=== PATIENT | male | born 2000 | race Hispanic/Latino ===

== ENCOUNTER 2023-03-09 02:29 | Emergency (ER) | payer OTHER, SELFPAY ==
[2023-03-09] VITALS (8 sets, daily range): BP systolic 139–172; BP diastolic 70–98; PULSE 88–111; RESP 18–26; TEMP 37.1–38.4; O2SAT 98–99
--- NOTE | ~2023-03-09 | XR_ITS ---
EXAMINATION: XR chest 1V portable 03/09/2023 03:51 INDICATION: Left chest discomfort PROCEDURE: AP portable chest COMPARISON: No prior studies for comparison. FINDINGS: The lungs are clear. The cardiomediastinal silhouette is within normal limits. There are no pleural effusions. There is no pneumothorax suspected. IMPRESSION: 1: NO ACUTE CARDIOPULMONARY DISEASE. Reviewed, dictated and finalized at location A.
--- NOTE | 2023-03-09 03:16 | ECG_ITS ---
Measurements Intervals [place] Rate: 94 P: 28 MA: 156 QRS: 6 QRSD: 98 T: -5 QT: 328 QTc: 412 Interpretive Statements SINUS RHYTHM BORDERLINE ST-T WAVE ABNORMALITY- INFERIOR LEADS BASELINE WANDER- I, AVR, AVL, AVF, V1, V3 BORDERLINE ECG NO PREVIOUS ECG AVAILABLE FOR COMPARISON Electronically Signed On 03-09-2023 8:04:29 CDT by Hermilo Whelan D.O.
[2023-03-09] MEDS: IBUPROFEN 400 MG TABLET 800 MG PO (03:30)
[2023-03-09] MEDS: SODIUM CHLORIDE 0.9% IV 2,000 ML 999 ML IV CONT (03:41)
[2023-03-09 03:44] LABS: Basophils Percent Auto 0.1 % (0.2-1.2); Hematocrit 46.1 % (42.0-52.0); Hemoglobin 16.1 g/dL (14.0-18.0); Immature Granulocyte Absolute 0.07 K/mm3 (0.00-0.031); Immature Granulocyte Percent A 0.5 % (0-0.5); Lymphocytes Absolute Auto 0.97 K/mm3 (0.9-3.2); Lymphocytes Percent Auto 7.2 % (18.3-44.2); Mean Corpuscular HGB Conc 34.9 g/dl (32-36); Mean Corpuscular Hemoglobin 30.6 pg (26-34); Mean Corpuscular Volume 87.5 fl (80-100); Mean Platelet Volume 10.7 fl (7.4-10.4); Monocytes Absolute Auto 1.1 K/mm3 (0.1-0.6); Monocytes Percent Auto 8.4 % (2.6-8.5); Neutrophils Absolute Auto 11.3 K/mm3 (1.3-6.7); Neutrophils Percent Auto 83.8 % (45.5-73.1); Platelet Count Result 214 k/mm3 (150-375); Red Blood Count 5.27 M/mm3 (4.6-6.20); Red Cell Distribution Width 12.2 % (11.5-14.5); White Blood Count 13.5 K/mm3 (4.5-10.0)
[2023-03-09 03:54] LABS: Alanine Aminotransferase 108 U/L (6-50); Albumin Level 4.8 g/dL (3.5-5.1); Alkaline Phosphatase 73 U/L (38-126); Anion Gap 9 mmol/L (8-16); Aspartate Amino Transferase 45 U/L (17-59); Blood Urea Nitrogen 11 mg/dL (9-20); Calcium 8.1 mg/dL (8.4-10.2); Carbon Dioxide 28 mmol/L (22-30); Chloride 98 mmol/L (98-107); Estimated CRCL calculation 157 ml/min; Estimated Glomerular Filt Rate > 60; Glucose 139 mg/dL (65-110); Lipase 37 U/L (23-300); Magnesium 1.6 mg/dL (1.6-2.3); Potassium 3.2 mmol/L (3.4-5.0); Sodium 135 mmol/L (137-145)
[2023-03-09 04:20] LABS: Influenza A QL RT-PCR Negative (Negative); Influenza B QL RT-PCR Negative (Negative); RSV RNA, RT-PCR Negative (Negative); SARS-CoV-2 RNA PCR Negative (Negative)
[2023-03-09] MEDS: POTASSIUM CHLORIDE 20 MEQ TABLET 40 MEQ PO (05:07)
--- NOTE | 2023-03-09 05:12 | ED.GENADULT ---
HPI - General Adult General Chief complaint: Nausea/Vomiting/Diarrhea Stated complaint: N/V/D, L sided numbness Time Seen by Provider: 03/09/23 02:59 History of Present Illness HPI narrative: This is a 22-year-old male presenting ED with chief complaint of nausea vomiting diarrhea. Patient symptoms started 2 days ago. Has multiple episodes of nausea vomiting diarrhea. He has had fevers. He denies cough congestion or difficulty breathing. Patient came in today because he started to have some numbness and tingling in his chest left arm. It has since resolved. No other complaints. Related Data Allergies Allergy/AdvReac Type Severity Reaction Status Date / Time No Known Allergies Allergy Verified 03/09/23 03:30 Exam Narrative: APPEARANCE: No apparent distress. Patient is well-appearing. Head: atraumatic. EYES: EOMI, NOSE: Atraumatic NECK: Trachea midline RESPIRATORY: No increased rate of breathing, clear to auscultation, speaking in full sentences CARDIOVASCULAR: RRR, no peripheral edema ABDOMINAL: soft nontender , soft nontender no guarding rebound MUSCULOSKELETAl: No obvious deformities NEURO: Alert. Moving 4/4 extremities SKIN:: Warm, dry. Normal color PSYCHIATRIC: Normal affect Course Vital Signs Vital signs: Vital Signs Temperature 101.1 F H 03/09/23 02:34 Pulse Rate 111 H 03/09/23 02:34 Respiratory Rate 18 03/09/23 02:34 Blood Pressure 172/98 H 03/09/23 02:34 Pulse Oximetry 98 03/09/23 02:34 Oxygen Delivery Room Air 03/09/23 02:34 Temperature 101.1 F H 03/09/23 02:34 Pulse Rate 101 H 03/09/23 05:08 Respiratory Rate 22 H 03/09/23 05:08 Blood Pressure 150/76 H 03/09/23 05:08 Pulse Oximetry 99 03/09/23 05:08 Oxygen Delivery Room Air 03/09/23 02:34 Medical Decision Making [facility] Narrative Medical decision making narrative: -Presentation: 22-year-old male presenting with viral syndrome. Patient also had some chest/arm numbness and tingling that has since resolved. basic lab work, chest x-ray EKG vitals swabs were reobtained. Patient will be fluid resuscitated and given Motrin for fever. 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 -External Chart Review: None -Hx from independent Sources: none -Discussion of Management/Consultants: none -Independent interpretation of studies: white blood cell count is elevated 13.5. Potassium was low at 3.2. This was repleted. Rest of metabolic panel was within acceptable limits. Viral swabs were negative. Chest x-ray showed no acute cardiopulmonary process. Independent EKG interpretation: Rhythm [sinus], Rate [94], Vandiver -[normal], GA -[normal], QRS [narrow], QTC [normal], T waves -[negative for concerning inversions], ST Segments - [Negative for concerning elevations] Final interpretations: [Normal Sinus Rhythm] Dx tests considered but not ordered: none -Procedures: none -Interventions: 2 L normal saline, 40 mEq potassium, 800 mg Motrin -Shared decision making / Disposition: On re-evaluation the patient's vital signs have normalized. He is no longer tachycardic or febrile. The patient has not had recurrence of the chest and arm tingling or numbness since his arrival. patient is comfortable going home. He will be given return precautions. -RX Motrin, Tylenol, loperamide Vital Signs Vital Signs: Vital Signs Temperature 101.1 F H 03/09/23 02:34 Pulse Rate 111 H 03/09/23 02:34 Respiratory Rate 18 03/09/23 02:34 Blood Pressure 172/98 H 03/09/23 02:34 Pulse Oximetry 98 03/09/23 02:34 Oxygen Delivery Room Air 03/09/23 02:34 Temperature 101.1 F H 03/09/23 02:34 Pulse Rate 101 H 03/09/23 05:08 Respiratory Rate 22 H 03/09/23 05:08 Blood Pressure 150/76 H 03/09/23 05:08 Pul
== END 2023-03-09 05:53 | disposition home or self-care (01) ==
PROVIDERS: Emergency Provider Emergency Medicine
DX: K52.9 Noninfective gastroenteritis and colitis, unspecified (principal); Z20.822 Contact with and (suspected) exposure to COVID-19; R94.31 Abnormal electrocardiogram [ECG] [EKG]
CPT/HCPCS: 36415; 71045; 80053; 83690; 83735; 85025; 87637; 93005; 96360; 99283; A9270; J7030

== ENCOUNTER 2023-12-04 21:07 | Emergency (ER) | payer OTHER, SELFPAY ==
[2023-12-04 21:10] VITALS: BP 196/119; PULSE 111; RESP 18; TEMP 37.2; O2SAT 99
[2023-12-04] MEDS: SODIUM CHLORIDE 0.9% IV 1,000 ML 999 ML IV CONT (21:31)
[2023-12-04 21:32] VITALS: BP 198/105; PULSE 101; RESP 26; O2SAT 98
[2023-12-04] MEDS: diphenhydrAMINE HCl INJ 50 MG/ML VIAL IV PUSH (21:32)
[2023-12-04] MEDS: FAMOTIDINE 20 MG/2 ML VIAL IV PUSH (21:32)
[2023-12-04] MEDS: methylPREDNISolone SOD SUCC 125 MG VIAL IV PUSH (21:33)
[2023-12-04 22:55] VITALS: BP 177/99; PULSE 99; RESP 17; O2SAT 94
--- NOTE | 2023-12-04 23:11 | PC.NURSE ---
Assumed care of pt from RYAN Phan. Pt resting comfortably in bed and verbalizes feeling relief.
[2023-12-04 23:15] VITALS: O2SAT 96
--- NOTE | 2023-12-04 23:43 | ED.GENADULT ---
HPI - General Adult General Chief complaint: Allergic Reaction Stated complaint: allergic reaction Time Seen by Provider: 12/04/23 21:26 History of Present Illness HPI narrative: Patient 23-year-old gentleman who presents emergency department with chief complaint of allergic reaction. The patient reports he ate some shrimp this evening and reports that he started itching all over his body and felt a fullness in his mouth. The patient denies stridor denies difficulty swallowing denies shortness of breath. Related Data Allergies Allergy/AdvReac Type Severity Reaction Status Date / Time No Known Allergies Allergy Verified 03/09/23 03:30 Review of Systems Review of Systems: A 10 system review of systems was completed on the patient and is negative except for what is stated in the HPI. Nursing and ancillary documentation was reviewed. Course Course Emergency Course: GENERAL: Well-appearing, well-nourished, and in no acute distress. HEAD: Normocephalic, atraumatic. EYES: PERRLA and EOMI. ENT: Nares clear, no rhinorrhea or epistaxis. Mucous membranes moist. NECK: Supple. CHEST: Clear to auscultation. No respiratory distress. HEART: Regular rate and rhythm. No murmur heard. Normal peripheral pulses. ABDOMEN: Soft, nontender, nondistended, normal active bowel sounds. EXTREMITIES: Normal range of motion. No edema. SKIN: Warm, dry, urticarial rash present. NEURO: No focal deficits. Alert and oriented x3. PSYCH: Normal mood and affect. Vital Signs Vital signs: Vital Signs Temperature 37.2 C 12/04/23 21:10 Pulse Rate 111 H 12/04/23 21:10 Respiratory Rate 18 12/04/23 21:10 Blood Pressure 196/119 H 12/04/23 21:10 Pulse Oximetry 99 12/04/23 21:10 Oxygen Delivery Room Air 12/04/23 21:10 Temperature 37.2 C 12/04/23 21:10 Pulse Rate 99 12/04/23 22:55 Respiratory Rate 17 12/04/23 22:55 Blood Pressure 177/99 H 12/04/23 22:55 Pulse Oximetry 94 12/04/23 22:55 Oxygen Delivery Room Air 12/04/23 21:10 Medical Decision Making [facility] Narrative Medical decision making narrative: Differential diagnosis includes generalized allergic reaction, urticaria, Patient received IV steroids IV Benadryl and IV Pepcid the patient will be observed in the emergency department for 2 hours is feeling much better at this time and patient will be discharged home on a course of steroids Vital Signs Vital Signs: Vital Signs Temperature 37.2 C 12/04/23 21:10 Pulse Rate 111 H 12/04/23 21:10 Respiratory Rate 18 12/04/23 21:10 Blood Pressure 196/119 H 12/04/23 21:10 Pulse Oximetry 99 12/04/23 21:10 Oxygen Delivery Room Air 12/04/23 21:10 Temperature 37.2 C 12/04/23 21:10 Pulse Rate 99 12/04/23 22:55 Respiratory Rate 17 12/04/23 22:55 Blood Pressure 177/99 H 12/04/23 22:55 Pulse Oximetry 94 12/04/23 22:55 Oxygen Delivery Room Air 12/04/23 21:10 Critical Care Time Critical Care Time Critical Care Time: Yes Total Critical Care Time: 30 Discharge Plan Discharge Clinical Impression: Allergic reaction Patient Disposition: Home, Self-Care Condition: Stable Instructions: Antibiotic Form, General Allergic Reaction (ED) Prescriptions: New prednisone 20 mg tablet 40 mg PO DAILY 5 Days Qty: 10 0RF No Action acetaminophen 500 mg tablet 1,000 mg PO TID PRN (Reason: petrona) 7 Days Qty: 42 0RF ibuprofen 800 mg tablet 800 mg PO TID PRN (Reason: pain) 7 Days Qty: 21 0RF loperamide [Anti-Diarrheal (loperamide)] 2 mg tablet 2 mg PO QID PRN (Reason: loose stool) Qty: 30 0RF Follow-up/Referrals: Kerline Barnett DO [Physician] - UNKNOWN,DOCTOR [Primary Care Provider] - Time of Disposition: 23:46
[2023-12-05 00:02] VITALS: BP 166/84; PULSE 98; RESP 20; O2SAT 99
== END 2023-12-05 00:04 | disposition home or self-care (01) ==
PROVIDERS: Emergency Provider Emergency Medicine
DX: T78.40XA Allergy, unspecified, initial encounter (principal); X58.XXXA Exposure to other specified factors, initial encounter
CPT/HCPCS: 96361; 96374; 96375; 99284; J1200; J2930; J7030

== ENCOUNTER 2024-05-06 16:25 | Emergency (ER) | payer OTHER, SELFPAY ==
[2024-05-06 16:50] VITALS: BP 180/109; PULSE 106; RESP 20; TEMP 36.8; O2SAT 97
--- NOTE | 2024-05-06 17:08 | ED.GENADULT ---
HPI - General Adult General Chief complaint: Eye Problems Stated complaint: Eyes Irritation/Ear Irritation Time Seen by Provider: 05/06/24 17:08 History of Present Illness HPI narrative: Patient presents today with complaints of bilateral eye irritation, 1st began in right eye then moved to left eye. Does complain of some ocular discharge. States this has been present for 2-3 days. He is also complaining of throat and bilateral ear irritation, denies any outright pain. His blood pressure is noted to be very elevated, he reports this happens every time he seeks medical care. He denies any fever, chills, sweats. He reports his worst symptom today is the eye irritation. He denies any injury or trauma. Denies any vision disturbances. Related Data Allergies Allergy/AdvReac Type Severity Reaction Status Date / Time No Known Allergies Allergy Verified 05/06/24 16:56 Review of Systems Constitutional: Constitutional: Reports as per HPI Eyes: Eyes: Reports eye discharge, Reports irritation, Denies loss of vision, Denies other visual disturbances and Denies eye pain ENT: Reports nasal discharge Cardiovascular: Cardiovascular: Reports as per HPI, Reports no additional cardiovascular complaints, Denies chest pain and Denies dyspnea Respiratory: Respiratory: Reports as per HPI and Denies dyspnea Allergic/Immunologic: Allergic/Immunologic: Reports as per HPI, Reports itchy eyes and Denies wheezing Exam Const: General: cooperative and obese HENMT: Head: normal to inspection Ears: TM's normal bilaterally Face/Nose/Sinus: No sinus tenderness Mouth: No drooling Eyes: Sclera: scleral abnormality bilateral scleral exudate purulent and scleral injection diffuse Resp: Effort & Inspection: normal respiratory effort and able to speak in complete sentences Cardio: Palpation: normal PMI Rate: regular rate Rhythm: regular rhythm Course Course Level of Care: Express Care Visit Vital Signs Vital signs: Vital Signs Temperature 98.3 F 05/06/24 16:50 Pulse Rate 106 H 05/06/24 16:50 Respiratory Rate 05/06/24 16:50 Blood Pressure 180/109 H 05/06/24 16:50 Pulse Oximetry 97 05/06/24 16:50 Oxygen Delivery Room Air 05/06/24 16:50 Temperature 98.3 F 05/06/24 16:50 Pulse Rate 106 H 05/06/24 16:50 Respiratory Rate 05/06/24 16:50 Blood Pressure 160/100 H 05/06/24 17:09 Pulse Oximetry 97 05/06/24 16:50 Oxygen Delivery Room Air 05/06/24 16:50 Medical Decision Making MDM Narrative Medical decision making narrative: negative COVID and strep, culture sent. Eye exam consistent with conjunctivitis. Other symptoms more consistent with URI or allergic rhinitis. Advised patient of same. Treat with Tylenol, Claritin, ibuprofen per package instructions as needed. Advised patient that blood pressure is quite high, strongly urged him to follow with primary care provider. He agrees to do so. Emergency department for new or worsening symptoms Discharge instructions reviewed with patient, as well as provided in writing per nursing staff. The instructions also include specific and strict return/GO TO THE ER as well as f/u information. All questions have been answered, and the patient deny any further questions with discharge and discharge plan. Some parts of this dictation were generated by voice recognition software and may contain typographical and/or grammatical inaccuracies. Differential Diagnosis Differential Diagnosis: Differential diagnoses include URI, COVID, strep throat, hypertension, elevated blood pressure without diagnosis of hypertension allergic rhinitis Medical Records Medical records reviewed: Yes I reviewed the external patient's medical records. Vital Signs Vital Signs: Vital Signs Temperature 98.3 F 05/06/24 16:50 Pulse Rate 106 H 05/06/24 16:50 Respiratory Rate 20 05/06/24 16:50 Blood Pressure 180/109 H 05/06/24 16:50 Pulse Oximetry 97 05/06/24 16:50 Oxyge
[2024-05-06 17:09] VITALS: BP 160/100
[2024-05-06 17:47] LABS: EDSTREPNEGPOS1 Presumptive Negative
== END 2024-05-06 17:44 | disposition home or self-care (01) ==
PROVIDERS: Emergency Provider Nurse Practitioner Family
DX: H10.9 Unspecified conjunctivitis (principal); R03.0 Elevated blood-pressure reading, without diagnosis of hypertension; Z20.822 Contact with and (suspected) exposure to COVID-19
CPT/HCPCS: 87081; 87426; 87880; 99213; G0463

== ENCOUNTER 2024-08-16 08:47 | Outpatient (CLI) | payer OTHER, SELFPAY ==
[2024-08-16 09:12] LABS: Hematocrit 46.3 % (42.0-52.0); Hemoglobin 17.3 g/dL (14.0-18.0); Mean Corpuscular HGB Conc 37.4 g/dl (32-36); Mean Corpuscular Hemoglobin 33.3 pg (26-34); Mean Corpuscular Volume 89.2 fl (80-100); Mean Platelet Volume 12.2 fl (7.4-10.4); Platelet Count Result 224 k/mm3 (150-375); Red Blood Count 5.19 M/mm3 (4.6-6.20); Red Cell Distribution Width 11.9 % (11.5-14.5); White Blood Count 9.8 K/mm3 (4.5-10.0)
[2024-08-16 09:56] LABS: Hemoglobin A1C 10.6 % (<5.7)
[2024-08-16 11:28] LABS: Alanine Aminotransferase 221 U/L (6-50); Albumin Level 4.8 g/dL (3.5-5.1); Alkaline Phosphatase 150 U/L (38-126); Anion Gap 12 mmol/L (4-12); Aspartate Amino Transferase 94 U/L (17-59); Bilirubin,Total 0.6 mg/dL (0.2-1.3); Blood Urea Nitrogen 19 mg/dL (9-20); Calcium 9.6 mg/dL (8.4-10.2); Carbon Dioxide 25 mmol/L (22-30); Chloride 99 mmol/L (98-107); Cholesterol 201 mg/dL (0-200); Estimated Glomerular Filt Rate > 60; Glucose 283 mg/dL (65-110); Potassium 4.3 mmol/L (3.4-5.0); Sodium 136 mmol/L (137-145)
[2024-08-16 11:47] LABS: LDL Cholesterol Direct < 60 mg/dL
[2024-08-16 12:33] LABS: Triglycerides 1943 mg/dL (<150)
== END 2024-08-16 08:48 | disposition home or self-care (01) ==
LOC: ANHLAB 08:49
PROVIDERS: PCP Family Medicine; Visit Provider Family Medicine
DX: Z00.00 Encounter for general adult medical examination without abnormal findings (principal); E66.9 Obesity, unspecified; E78.5 Hyperlipidemia, unspecified; F41.9 Anxiety disorder, unspecified
CPT/HCPCS: 36415; 80053; 80061; 83036; 84443; 85027

== ENCOUNTER 2025-05-27 13:05 | Emergency (ER) | payer OTHER, SELFPAY ==
[2025-05-27 13:11] VITALS: BP 183/93; PULSE 102; RESP 18; TEMP 36.6; O2SAT 100
--- NOTE | 2025-05-27 14:03 | ED_ITS ---
HPI - Ear Problem General Chief complaint: Ear Stated complaint: LT Ear Pain Time Seen by Provider: 05/27/25 13:25 Source: patient and RN notes reviewed Mode of arrival: ambulatory Limitations: no limitations History of Present Illness HPI Narrative: 24-year-old male presents Express Care complaining of left ear pain for approximately 1 day now. Patient said he was swimming approximately 1 week ago however develops symptoms yesterday. Patient denies any cough,, fever, body aches, chills, nausea, vomiting, diarrhea, dizziness, respiratory symptoms, any other symptoms. Patient has taken ibuprofen to help with the pain. Patient has a history of diabetes and hypertension. Related Data Allergies Allergy/AdvReac Type Severity Reaction Status Date / Time No Known Allergies Allergy Verified 05/27/25 13:29 Review of Systems Review of Systems: CONSTITUTIONAL: Denies fever, chills, or sweats. EYES: Denies visual changes, redness, or discharge. ENT: Denies rhinorrhea, congestion, sore throat. Positive for otalgia. CARDIOVASCULAR: Denies chest pain, palpitations, dizziness, lightheadedness, or edema. RESPIRATORY: Denies cough or dyspnea. GASTROINTESTINAL: Denies abdominal pain, nausea, vomiting, or diarrhea. GENITOURINARY: Denies dysuria or hematuria. SKIN: Denies rash or itching. MUSCULOSKELETAL: Denies back pain, joint pain, or myalgia. NEUROLOGIC: Denies headache, numbness, or weakness. PSYCHIATRIC: Denies anxiety or depression. All other systems reviewed are negative, except as documented in HPI. PMFSH Social History Social History Smoking status: Never smoker Comments At the time of my signature, I reviewed and agree with the nursing past medical, surgical, social, and family history. There is no relevant family history pertinent to the patient complaint. Exam Narrative: GENERAL: This is a well-nourished, well-developed adult, in no apparent distress. They are non ill-appearing, nontoxic appearing. HEAD: normocephalic, atraumatic. EYES: Sclera clear/white. Conjunctiva normal. Vision is grossly intact. Extraocular movements intact EARS: External ears normal, left tragal tenderness. Right auditory canals clear and without drainage, left auditory canal erythematous macerated without drainage. TMs normal without perforation. Hearing grossly intact. No mastoid tenderness NOSE: External nose normal with no obvious nasal discharge, nasal turbinates without redness, no rhinorrhea. THROAT: Mucous membranes moist, posterior pharynx clear, without erythema or swelling. Uvula midline. NECK: Neck supple, non-tender without lymphadenopathy, masses or thyromegaly. CARDIOVASCULAR: Regular rate and rhythm without murmurs, gallops, or rubs. RESPIRATORY: Clear to auscultation. Breath sounds equal bilaterally. No wheezes, rales, or rhonchi. SKIN: warm, Dry, intact with no suspicious lesions or rash, good texture and turgor. NEURO: awake, alert, and oriented to person, place and time. There were no obvious focal neurologic abnormalities. EXTREMITIES: No joint tenderness, effusion, or edema noted. Course Course Emergency Course: Portions of this record may have been created with voice recognition software Level of Care: Express Care Visit Vital Signs Vital signs: Vital Signs Temperature 97.9 F 05/27/25 13:11 Pulse Rate 102 H 05/27/25 13:11 Respiratory Rate 18 05/27/25 13:11 Blood Pressure 183/93 H 05/27/25 13:11 Pulse Oximetry 100 05/27/25 13:11 Oxygen Delivery Room Air 05/27/25 13:11 Temperature 97.9 F 05/27/25 13:11 Pulse Rate 102 H 05/27/25 13:11 Respiratory Rate 18 05/27/25 13:11 Blood Pressure 183/93 H 05/27/25 13:11 Pulse Oximetry 100 05/27/25 13:11 Oxygen Delivery Room Air 05/27/25 13:11 Reviewed Medical Decision Making MDM Narrative Medical decision making narrative: Patient has swimmer's ear to the left ear. Will prescribe Cipro dexamethasone ear drops. Discussed physical exam findings. Advised supportive measures and signs/symptoms to go to the ER. Pt is appropriate for outpt treatment and f/u. Differential Diagnosis Differential Diagnosis: Otitis media, otitis externa, upper respiratory infection, swimmer's ear Vital Signs Vital Signs: Vital Signs Temperature 97.9 F 05/27/25 13:11 Pulse Rate 102 H 05/27/25 13:11 Respiratory Rate 18 05/27/25 13:11 Blood Pressure 183/93 H 05/27/25 13:11 Pulse Oximetry 100 05/27/25 13:11 Oxygen Delivery Room Air 05/27/25 13:11 Temperature 97.9 F 05/27/25 13:11 Pulse Rate 102 H 05/27/25 13:11 Respiratory Rate 18 05/27/25 13:11 Blood Pressure 183/93 H 05/27/25 13:11 Pulse Oximetry 100 05/27/25 13:11 Oxygen Delivery Room Air 05/27/25 13:11 Critical Care Time Critical Care Time Critical Care Time: No Discharge Plan Discharge Clinical Impression: Otitis externa Qualifiers: Otitis externa type: swimmer's ear Chronicity: acute Laterality: left Qualified Code(s): H60.332 - Swimmer's ear, left ear Patient Disposition: Home Condition: Stable Instructions: Antibiotic Form, Swimmer's Ear (ED) Additional Instructions: Swimmer's ear is an infection in the outer ear canal, which runs from your eardrum to the outside of your head. It's often caused by water that remains in your ear, creating a moist environment that encourages the growth of bacteria. Take antibiotic drops as directed. Tylenol and ibuprofen every 8 hours as needed to reduce fever, pain Avoid water or anything into the ear for one week Follow up with your personal physician for further evaluation and treatment within 3-5days. If your symptoms persist, change or worsen significantly, go to the emergency department for further evaluation. Patient Language: Azeri Prescriptions: New ciprofloxacin-dexamethasone 0.3-0.1 % drops,suspension 4 drp EACH EAR Q12H 7 Days Qty: 7.5 0RF No Action (DME) pen needle, diabetic [Comfort EZ Pen [place]] 31 gauge x 1/4 needle See Rx Instructions .Route Qty: 100 1RF Rx Instructions: Use with insulin pen As directed Mounjaro 15 mg/0.5 mL pen injector 15 mg subcut WEEKLY Qty: 2 3RF amlodipine 5 mg tablet 5 mg PO DAILY Qty: 90 0RF Follow-up/Referrals: Jeremy Perez MD [Primary Care Provider] - Time of Disposition: 13:36
== END 2025-05-27 13:43 | disposition home or self-care (01) ==
PROVIDERS: PCP Family Medicine
DX: H60.332 Swimmer's ear, left ear (principal); I10 Essential (primary) hypertension; E11.9 Type 2 diabetes mellitus without complications; Z79.85 Long-term (current) use of injectable non-insulin antidiabetic drugs
CPT/HCPCS: 99213; G0463